=== PATIENT | female | born 1960 | race Caucasian/White ===

== ENCOUNTER 2020-03-10 16:45 | Emergency (ER) | payer MEDICARE, MEDICAID, SELFPAY ==
[2020-03-10 16:53] VITALS: BP 128/87; BP 156/97; PULSE 90; PULSE 97; RESP 16; TEMP 37.1; O2SAT 95; BMI 28.9
--- NOTE | 2020-03-10 17:26 | ED_ITS ---
HPI - Dizziness General Chief Complaint: Dizziness Stated Complaint: dizness Time Seen by Provider: 03/10/20 17:26 Source: patient Mode of arrival: ambulatory Limitations: no limitations History of Present Illness HPI Narrative: 59-year-old female presents with sudden onset of dizziness and hot flash, this occurred while she was sleeping and she woke up with dizziness. She also reports difficulty walking and loss balance, at this time the symptoms have subsided but this is the 1st time she has ever experienced this. She does take Suboxone, denies recreational drug use , tobacco and alcohol intake. She does not take any other medications and does not have any other comorbidities. She denies chest pain or pressure, palpitations, shortness of breath, abdominal pain, abdominal distention, dysuria, hematuria, fevers and chills. MD elicited complaint: dizziness and near syncope Pertinent past history: BPPV Onset (ago): hour(s) ( several) Timing: sudden onset Severity: moderate Description: room spinning , lightheadedness, off-balance and near-syncope History of similar symptoms: No Exacerbating factors: movement/ambulation Relieving factors: nothing Associated symptoms: denies other symptoms Related Data Previous Rx's Medication Instructions Recorded [id number] 1 cap PO Q8H PRN #7 cap 03/10/20 [Fioricet] meclizine 25 mg PO BID PRN #10 tab 03/10/20 Allergies Allergy/AdvReac Type Severity Reaction Status Date / Time No Known Allergies Allergy Unverified 02/03/20 18:28 Review of Systems Review of Systems: Constitutional: No Weight loss, No Fever, No Chills, No Night Sweats, No Fatigue, No Malaise ENT/Mouth: No Hearing loss, No Ear Pain, No Nasal Congestion, No Sinus Pain, No Hoarseness, No sore throat, No Rhinorrhea, No Swallowing Difficulty Eyes: No Eye Pain, No Swelling, No Redness, No Foreign Body, No Discharge, No Vision Changes Cardiovascular: No Chest Pain, No SOB, No Dyspnea on Exertion, No Orthopnea, No Edema, No Palpitations Respiratory: No Cough, No Sputum, No Wheezing, No Smoke Exposure, No Dyspnea Gastrointestinal: No Nausea, No Vomiting, No Diarrhea, No Constipation, No abdominal Pain, No Hematochezia, No Melena Genitourinary: no irregular bleeding, No Dysuria, No Urinary Frequency, No Hematuria, No Urinary Incontinence, No Urgency, No Flank Pain, No Urinary Flow Changes, No Hesitancy Musculoskeletal: No joint pain, No Myalgias, No Joint Swelling Skin: No Skin Lesions, No rash Neuro: positive dizziness, positive loss of balance, No Weakness, No Numbness, No Paresthesias, No Loss of Consciousness,No Headache Psych: No Anxiety/Panic, No Depression, No SI/HI/AH/VH, No Social Issues Heme/Lymph: No Bruising, No Bleeding,No Lymphadenopathy Endocrine: No Polyuria, No Polydipsia, No Temperature Intolerance [facility] Past Medical History Attestation statement: The following information was validated with the patient. Medical History delivery delivered Surgical History Hx of cholecystectomy Hx of hand surgery Social History Social History Alcohol intake: never Smoking Status: Current every day smoker Use of substances other than those prescribed or required for medical reasons: No Advance Directives: No Advance Directives Information Provided: No Physical Exam Vital Signs: Vital Signs: Vital Signs Temp Pulse Resp BP Pulse Ox 03/10/20 19:04 88 152/83 H 03/10/20 19:03 79 16 142/86 H 97 03/10/20 16:53 98.7 F 90 16 128/87 95 Body Mass Index 28.9 Appearance: Alert. Oriented X3. No acute distress. Head: Normal external exam. Normocephalic. Atraumatic. No Oneal signs noted. No raccoon eyes noted Eyes: PERRLA. EOMI. Conjunctiva and sclera normal. Eyelids normal. ENT: TM's Normal. Pharynx normal. Uvula midline. Moist mucous membranes. No trismus noted. No drooling noted. No muffled voice noted. Neck: Normal inspection. Neck supple. No adenopathy. Thyroid Normal. No meningeal signs. No neck mass noted. CVS: Normal heart rate and rhythm. Heart sound normal. No murmurs noted. Pulses equal to all extremities. Respiratory: No respiratory distress. Painless inspiration. Breath sounds normal. No wheezes/rales/rhonchi noted. Chest nontender. No accessory muscle usage noted or decreased air movement noted. Abdomen: Soft and nontender. Bowel sounds normal in all 4 quadrants. No distention noted. No organomegaly noted. No visible injury noted. Back: No CVA tenderness. Full range of motion noted. Skin: Skin warm and dry. Normal skin color. Normal skin turgor. No rashes/lesions/lacerations noted. Extremities: No lower extremity edema. Extremities exhibit normal range of motion. Extremities nontender. Neuro: cranial nerves 2-12 intact, no focal neural deficits, strength 5/5 to all extremities, No motor deficit. No sensory deficit. Reflexes normal. Course Course Course Narrative: plan is to rule out ACS, CVA, Vertigo, and infection. Labs are unremarkable, CT scan is negative for acute findings, chest x-ray is normal. Plan of care is for patient to follow-up with primary care physician for bilateral cerumen impaction and for chronic headaches. We did discharge home with meclizine and Fioricet, she does understand that she needs close follow-up for these to concerns. Patient verbalized understanding of and agrees to plan of care discharge home. MDM - Dizziness Differential Diagnosis Differential diagnosis: Likely benign paroxysmal positional vertigo, orthostatic hypotension, cerebrovascular accident and transient cerebral ischemia Medical Records Attestation: I reviewed the patient's medical records. Lab Data Attestation: I reviewed the patient's lab results. Result diagrams: 03/10/20 18:03 03/10/20 18:03 Labs: Lab Results 03/10/20 03/10/20 03/10/20 Range/Units 18:03 18:03 18:03 WBC 8.1 (4.8-10.8) X10*3/uL RBC 4.21 (4.20-5.50) X10*6/uL Hgb 13.6 (12.0-16.0) g/dl Hct 41.4 (37-47) % MCV 98.3 H (80-98) fL MCH 32.3 (27.0-33.0) pg MCHC 32.9 (31.0-35.0) g/dl RDW 11.5 (11.0-16.0) % Plt Count 176 (160-400) X10*3/uL MPV 8.5 L (9.4-12.3) fL Immature Gran % (Auto) 0.5 H (0.0-0.4) % Neut % (Auto) 73.3 H (45-73) % Lymph % (Auto) 17.9 L (20-40) % [place] % (Auto) 7.1 (2-11) % Eos % (Auto) 0.6 (0-4) % Baso % (Auto) 0.6 (0-2) % Lymph # (Auto) 1.5 (1.2-4.9) X10*3/uL [place] # (Auto) 0.6 (0.1-1.2) X10*3/uL Eos # (Auto) 0.1 (0.0-0.4) X10*3/uL Baso # (Auto) 0.1 (0.0-0.2) X10*3/uL Abs Immat Gran (auto) 0.04 H (0.00-0.03) X10*3/uL Absolute Neuts (auto) 6.0 (2.0-8.3) X10*3/uL Absolute Nucleated RBC 0.000 (0.0-0.012) X10*3/uL Nucleated RBC % (auto) 0.0 (0.0-0.2) /100WBC PT 11.3 (10.8-13.0) SEC INR 1.0 (0.9-1.1) APTT 27.5 (24.1-38.0) SEC Sodium 137 (135-145) mmol/L Potassium 3.9 (3.3-5.1) mmol/l Chloride 105 (96-108) mmol/L Carbon Dioxide 23 (22-29) mmol/L Anion Gap 13 (12-20) BUN 9 (9-16) mg/dL Creatinine 0.80 (0.5-1.4) mg/dL Estim Creat Clear Calc 71.1 Estimated GFR > 60 Random Glucose 111 (60-115) mg/dL Calcium 8.3 L (8.4-10.2) mg/dL Total Bilirubin 0.2 (0.0-1.0) mg/dL Direct Bilirubin < 0.2 (0.0-0.5) mg/dL AST 16 (5-31) U/L ALT 12 (0-31) U/L Alkaline Phosphatase 67 (39-117) U/L Troponin I High Sens (<3.5-17.0) ng/L Total Protein 6.6 (6.5-8.0) g/dL Albumin 4.0 (3.5-5.0) g/dL Lipase 21 (8-78) U/L // Range/Units 18:03 WBC (4.8-10.8) X10*3/uL RBC (4.20-5.50) X10*6/uL Hgb (12.0-16.0) g/dl Hct (37-47) % MCV (80-98) fL MCH (27.0-33.0) pg MCHC (31.0-35.0) g/dl RDW (11.0-16.0) % Plt Count (160-400) X10*3/uL MPV (9.4-12.3) fL Immature Gran % (Auto) (0.0-0.4) % Neut % (Auto) (45-73) % Lymph % (Auto) (20-40) % [place] % (Auto) (2-11) % Eos % (Auto) (0-4) % Baso % (Auto) (0-2) % Lymph # (Auto) (1.2-4.9) X10*3/uL [place] # (Auto) (0.1-1.2) X10*3/uL Eos # (Auto) (0.0-0.4) X10*3/uL Baso # (Auto) (0.0-0.2) X10*3/uL Abs Immat Gran (auto) (0.00-0.03) X10*3/uL Absolute Neuts (auto) (2.0-8.3) X10*3/uL Absolute Nucleated RBC (0.0-0.012) X10*3/uL Nucleated RBC % (auto) (0.0-0.2) /100WBC PT (10.8-13.0) SEC INR (0.9-1.1) APTT (24.1-38.0) SEC Sodium (135-145) mmol/L Potassium (3.3-5.1) mmol/l Chloride (96-108) mmol/L Carbon Dioxide (22-29) mmol/L Anion Gap (12-20) BUN (9-16) mg/dL Creatinine (0.5-1.4) mg/dL Estim Creat Clear Calc Estimated GFR Random Glucose (60-115) mg/dL Calcium (8.4-10.2) mg/dL Total Bilirubin (0.0-1.0) mg/dL Direct Bilirubin (0.0-0.5) mg/dL AST (5-31) U/L ALT (0-31) U/L Alkaline Phosphatase (39-117) U/L Troponin I High Sens < 3.5 (<3.5-17.0) ng/L Total Protein (6.5-8.0) g/dL Albumin (3.5-5.0) g/dL Lipase (8-78) U/L Imaging Data Chest x-ray: Attestation: I personally reviewed and interpreted this imaging study as follows: Radiologist's impression: FINDINGS: CHEST: The lungs are well-expanded and clear of acute process. The heart size and pulmonary vascularity is normal. No gross bony abnormality seen except for mild degenerative changes bilateral AC joints. CT BRAIN: There is no acute intra-axial, extra-axial bleed, collection, masses or midline shift. There is no acute infarct in evolution. The lateral ventricles are symmetrical in size and normal size. The mo to white matter difference is maintained. Bone windows reveal no calvarial abnormality. Is no scalp soft tissue abnormality. Bilateral paranasal sinuses and mastoid air cells are well aerated. XR/XR chest 1V IMPRESSION: Unremarkable chest exam. No acute intracranial process seen. CT scan - head: Attestation: I personally reviewed and interpreted this imaging study as follows: Radiologist's impression: FINDINGS: CHEST: The lungs are well-expanded and clear of acute process. The heart size and pulmonary vascularity is normal. No gross bony abnormality seen except for mild degenerative changes bilateral AC joints. CT BRAIN: There is no acute intra-axial, extra-axial bleed, collection, masses or midline shift. There is no acute infarct in evolution. The lateral ventricles are symmetrical in size and normal size. The mo to white matter difference is maintained. Bone windows reveal no calvarial abnormality. Is no scalp soft tissue abnormality. Bilateral paranasal sinuses and mastoid air cells are well aerated. XR/XR chest 1V IMPRESSION: Unremarkable chest exam. No acute intracranial process seen. ECG Data Attestation: I personally reviewed and interpreted this ECG as follows: ECG interpretation date: 03/10/20 ECG interpretation time: 17:52 Prior ECG tracings: not available for review Interpretation: Vent. Rate : 087 BPM Atrial Rate : 087 BPM P-R Int : 160 ms QRS Dur : 086 ms QT Int : 386 ms P-R-T Axes : 063 046 032 degrees QTc Int : 464 ms Normal sinus rhythm Normal ECG No previous ECGs available Discharge Plan Discharge Clinical Impression: Benign paroxysmal positional vertigo Qualifiers: Laterality: unspecified laterality Qualified Code(s): H81.10 - Benign par oxysmal vertigo, unspecified ear Headache Qualifiers: Headache type: unspecified Headache chronicity pattern: acute headache Intractability: not intractable Qualified Code(s): R51.9 - Headache, unspecified Patient Disposition: Home, Self-Care Instructions: Vertigo (ED), Acute Headache (ED), Benign Paroxysmal Positional Vertigo (ED), Dizziness (ED) Additional Instructions: you were evaluated for dizziness and headache. Your CT scan of the head was n egative for acute findings, lab values were within normal limits. You do have bilateral cerumen impactions, please follow-up with primary care provider or ENT. We prescribed Fioricet for Headaches. Please take this medication as prescribed. Please discuss this new onset dizziness with your primary care provider. This could be vertigo, we did prescribe meclizine for you. Please take medication as directed. Thank you for choosing this emergency department for evaluation. Please fol low-up with primary care physician as needed. Return to the emergency department for any new, concerning, or worsening symptoms. Prescriptions: New [id number] [Fioricet] 50-300-40 mg capsule 1 cap PO Q8H PRN (Reason: pain) Qty: 7 RF: 0 meclizine 25 mg tablet 25 mg PO BID PRN (Reason: dizziness) Qty: 10 RF: 0
--- NOTE | 2020-03-10 17:42 | ECG_ITS ---
Test Reason : DIZZINESS Blood Pressure : / mmHG Vent. Rate : 087 BPM Atrial Rate : 087 BPM P-R Int : 160 ms QRS Dur : 086 ms QT Int : 386 ms P-R-T Axes : 063 046 032 degrees QTc Int : 464 ms Normal sinus rhythm RSR' or QR pattern in V1 suggests right ventricular conduction delay Nonspecific ST abnormality Anterior leads Abnormal ECG No previous ECGs available Referred By: Dary Mccarthy Electronically Signed By:FAIZAN LAM MD
--- NOTE | 2020-03-10 17:42 | CT_ITS ---
EXAMINATION: CT BRAIN WITHOUT CONTRAST. Chest x-ray. CLINICAL INFORMATION: Dizziness and near-syncope. COMPARISON: CT brain 06/08/2012 TECHNIQUE: 5 mm thin axial and reformatted 2 mm thin sagittal and coronal images of brain were obtained. [facility] 688 chest one view. FINDINGS: CHEST: The lungs are well-expanded and clear of acute process. The heart size and pulmonary vascularity is normal. No gross bony abnormality seen except for mild degenerative changes bilateral AC joints. CT BRAIN: There is no acute intra-axial, extra-axial bleed, collection, masses or midline shift. There is no acute infarct in evolution. The lateral ventricles are symmetrical in size and normal size. The mo to white matter difference is maintained. Bone windows reveal no calvarial abnormality. Is no scalp soft tissue abnormality. Bilateral paranasal sinuses and mastoid air cells are well aerated. CT/CT head/brain wo con IMPRESSION: Unremarkable chest exam. No acute intracranial process seen.
[2020-03-10 18:14] LABS: MANUAL DIFF FLAG NO
[2020-03-10] MEDS: 0.9 % Sodium Chloride 1,000 ML 999 ML IVCONT (18:15)
[2020-03-10 18:18] LABS: Basophils Absolute Auto 0.1 X10*3/uL (0.0-0.2); Basophils Percent Auto 0.6 % (0-2); Eosinophils Absolute Auto 0.1 X10*3/uL (0.0-0.4); Eosinophils Percent Auto 0.6 % (0-4); Hematocrit 41.4 % (37-47); Hemoglobin 13.6 g/dl (12.0-16.0); Imm Gran Abs Auto 0.04 X10*3/uL (0.00-0.03); Imm Gran Pct Auto 0.5 % (0.0-0.4); Lymphocytes Absolute Auto 1.5 X10*3/uL (1.2-4.9); Lymphocytes Percent Auto 17.9 % (20-40); Mean Corpuscular HGB Conc 32.9 g/dl (31.0-35.0); Mean Corpuscular Hemoglobin 32.3 pg (27.0-33.0); Mean Corpuscular Volume 98.3 fL (80-98); Mean Platelet Volume 8.5 fL (9.4-12.3); Monocytes Absolute Auto 0.6 X10*3/uL (0.1-1.2); Monocytes Percent Auto 7.1 % (2-11); Neutrophils Percent Auto 73.3 % (45-73); Platelet Count 176 X10*3/uL (160-400); Red Blood Count 4.21 X10*6/uL (4.20-5.50); Red Cell Distribution Width 11.5 % (11.0-16.0); White Blood Count 8.1 X10*3/uL (4.8-10.8)
[2020-03-10 18:27] LABS: Prothrombin Time 11.3 SEC (10.8-13.0)
[2020-03-10 18:29] LABS: Partial Thromboplastin Time 27.5 SEC (24.1-38.0)
[2020-03-10 18:44] LABS: Alanine Aminotransferase 12 U/L (0-31); Alkaline Phosphatase 67 U/L (39-117); Anion Gap 13 (12-20); Aspartate Amino Transferase 16 U/L (5-31); Bilirubin Direct < 0.2 mg/dL (0.0-0.5); Bilirubin Total 0.2 mg/dL (0.0-1.0); Blood Urea Nitrogen 9 mg/dL (9-16); Calcium 8.3 mg/dL (8.4-10.2); Carbon Dioxide 23 mmol/L (22-29); Chloride 105 mmol/L (96-108); Creatinine Clr Calc Pharmacy 71.1; Estimated Glomerular Filt Rate > 60; Glucose Random 111 mg/dL (60-115); Lipase 21 U/L (8-78); Potassium 3.9 mmol/l (3.3-5.1); Sodium 137 mmol/L (135-145); Total Protein 6.6 g/dL (6.5-8.0)
[2020-03-10 18:52] LABS: Troponin-I High Sensitivity < 3.5 ng/L (<3.5-17.0)
[2020-03-10] MEDS: Acetaminophen 325 MG TABLET 650 MG PO (19:00)
[2020-03-10 19:03] VITALS: BP 142/86; PULSE 79; RESP 16; O2SAT 97
[2020-03-10 19:04] VITALS: BP 152/83; PULSE 88
== END 2020-03-10 19:55 | disposition home or self-care (01) ==
PROVIDERS: Nurse Practitioner Family; Emergency Provider Emergency Medicine
DX: H81.10 Benign paroxysmal vertigo, unspecified ear (principal); R51.9 Headache, unspecified; F17.200 Nicotine dependence, unspecified, uncomplicated
CPT/HCPCS: 36415; 70450; 71045; 80048; 80076; 83690; 84484; 85025; 85610; 85730; 93005; 96360; 99284